=== PATIENT | male | born 1975 | race Caucasian/White ===

== ENCOUNTER → 2017-06-22 | Outpatient (CLI) | payer OTHER | END | disposition home or self-care (01) | LOC: CFH 08:42 | PROVIDERS: ATTEND Nurse Practitioner Family | DX: R06.00 Dyspnea, unspecified (principal); R06.02 Shortness of breath | CPT/HCPCS: 78452; 93017; A9502 ==

== ENCOUNTER → 2017-10-10 | Outpatient (CLI) | payer OTHER | LOC: CARD 14:56 | PROVIDERS: ATTEND Internal Medicine Critical Care Medicine | DX: R06.02 Shortness of breath (principal) | CPT/HCPCS: 36600; 82803 ==

== ENCOUNTER → 2017-10-17 | Outpatient (CLI) | payer OTHER | LOC: RAD 13:31 | PROVIDERS: ATTEND Internal Medicine Critical Care Medicine | DX: R06.02 Shortness of breath (principal) | CPT/HCPCS: 71045; 78598; A9540; A9558 ==

== ENCOUNTER 2018-12-09 03:22 | Emergency (ER) | payer OTHER ==
[~2018-12-09] VITALS: Ht 175.3 cm; Wt 68.7 kg
[2018-12-09 03:24] VITALS: BP 131/90
[2018-12-09] MEDS ORDERED: DEXL30CA2 PO (03:30)
[2018-12-09] MEDS ORDERED: RANI150T23 PO (15:43)
[2018-12-09] MEDS ORDERED: ONDA4TAB7 PO (15:47)
== END 2018-12-09 05:33 | disposition home or self-care (01) ==
LOC: ED 04:50
DX: K59.00 Constipation, unspecified (principal)
CPT/HCPCS: 74022; 99283

== ENCOUNTER 2018-12-09 15:03 | Emergency (ER) | payer OTHER ==
[~2018-12-09] VITALS: Ht 175.3 cm; Wt 68.9 kg
[~2018-12-09 15:03] MED LIST: DEXL30CA2 PO
--- NOTE | 2018-12-09 15:41 | NUR ---
PT AMBULATORY TO ROOM. MD AT BEDSIDE TO UPDATE PT ON POC. PT STATES HE DRANK ALL THE COLONOSCOPY FLUID FROM EARLIER VISIT TO ER TODAY AND HE ONLY HAD CLEAR LIQUID BM AFTER THAT. PT STATES HE WANTS ANOTHER XRAY TO CHECK TO SEE IF ANYTHING HAS CHANGED. PT STATES HE HAS 3-4/10 PAIN IN ABDOMEN. NO SOB. NADN. VSS. CALL LIGHT IN REACH. PT RESTING ON [facility].
[2018-12-09] MEDS ORDERED: RANI150T23 PO (15:43)
[2018-12-09] MEDS ORDERED: ONDA4TAB7 PO (15:47)
--- NOTE | 2018-12-09 16:09 | NUR ---
PT BACK FROM XRAY.
--- NOTE | 2018-12-09 16:39 | NUR ---
PT RESTING ON GURNEY. NADN. MICHAELS. CHART REVIEWED AND PLACED FOR RECHECK.
[2018-12-09 17:20] VITALS: BP 110/71
--- NOTE | 2018-12-09 17:20 | NUR ---
PT TAKEN TO CT IN STABLE CONDITION.
== END 2018-12-09 18:17 | disposition home or self-care (01) ==
LOC: ED 16:09
DX: R10.84 Generalized abdominal pain (principal)
CPT/HCPCS: 74021; 74176; 99284